=== PATIENT | female | born 1995 | race Hispanic/Latino ===

== ENCOUNTER 2020-08-07 03:35 | Emergency (ER) | payer OTHER ==
[2020-08-07 03:47] LABS: BASOPHILS % (AUTO) 0.2 % (0.0-5.0); EOSINOPHILS % (AUTO) 2.2 % (0.0-8.0); HEMATOCRIT 39.6 % (36-48); LYMPHOCYTES % (AUTO) 33.3 % (21.0-51.0); MEAN CORPUSCULAR HEMOGLOBIN 30.6 pg (27.0-33.0); MEAN CORPUSCULAR HGB CONC 34.3 g/dL (32.0-36.0); MONOCYTES % (AUTO) 5.4 % (3.0-13.0); NEUTROPHILS % (AUTO) 58.5 % (40.0-77.0); PLATELET COUNT (AUTO) 353 K/uL (130-400); RED BLOOD CELL COUNT(AUTO) 4.45 MIL/uL (4.00-5.50); RED CELL DISTRIBUTION WIDTH 11.9 % (11.0-15.5)
[2020-08-07 03:51] LABS: APPEARANCE,URINE Clear (CLEAR); BILIRUBIN,URINE Negative (NEGATIVE); COLOR,URINE Yellow (YELLOW); GLUCOSE, URINE (UA) Negative (NEGATIVE); KETONES,URINE Negative (NEGATIVE); LEUKOCYTE ESTERASE ,URINE Trace (NEGATIVE); NITRATE,URINE Negative (NEGATIVE); OCCULT BLOOD,URINE Negative (NEGATIVE); PH,URINE 5.5 (5.0-8.0); PROTEIN,URINE Negative (NEGATIVE); UROBILINOGEN,URINE 0.2 mg/dL (0.2-1.0)
[2020-08-07 03:52] LABS: HCG,QUAL RESULT NEGATIVE (NEGATIVE)
[2020-08-07 03:58] LABS: AMPHET/METH SCREEN,URINE NEGATIVE (NEGATIVE); BARBITURATE SCREEN, URINE NEGATIVE (NEGATIVE); BENZODIAZEPINES SCREEN,URINE NEGATIVE (NEGATIVE); CANNABINOID SCREEN,URINE NEGATIVE (NEGATIVE); COCAINE SCREEN,URINE NEGATIVE (NEGATIVE); OPIATE SCREEN,URINE NEGATIVE (NEGATIVE); PHENCYCLIDINE SCREEN,URINE NEGATIVE (NEGATIVE)
[2020-08-07 03:59] LABS: CARBON DIOXIDE 23 mmol/L (21-32); CHLORIDE 105 mmol/L (101-111); CREATININE 0.8 mg/dL (0.5-1.5); GLOMERULAR FILTR. RATE CALC 92 mL/min (>60); GLUCOSE,RANDOM 116 mg/dL (70-105); POTASSIUM 3.5 mmol/L (3.5-5.1); SODIUM SERUM 138 mmol/L (136-145); UREA NITROGEN, BLOOD 10 mg/dL (7-18)
[2020-08-07 04:02] LABS: BACTERIA,URINE None Seen /HPF (None Seen); RBC,URINE None Seen /HPF (0-1); SQUAMOUS EPITHELIAL CELL,UR Few /HPF (0-2); WBC,URINE None Seen /HPF (0-1)
[2020-08-07 04:03] LABS: ALANINE AMINOTRANSFERASE 39 U/L (12-78); ALCOHOL, BLOOD 108 mg/dL (0-10); ASPARTATE AMINOTRANSFERASE 29 U/L (10-37); BILIRUBIN,TOTAL 1.2 mg/dL (0.2-1.0); TOTAL PROTEIN, SERUM 8.6 g/dL (6.0-8.3)
[2020-08-07 04:09] LABS: ACETAMINOPHEN < 1 mcg/mL (10-30); SALICYLATE < 2.8 mg/dL (2.8-20.0)
== END 2020-08-07 04:25 | disposition home or self-care (01) ==
LOC: EDH 03:35
DX: F41.9 Anxiety disorder, unspecified (principal); F32.89 Other specified depressive episodes; Z88.8 Allergy status to other drugs, medicaments and biological substances
CPT/HCPCS: 36415; 80053; 80305; 81001; 81025; 82948; 85025; 99283; G0481

== ENCOUNTER 2024-06-18 17:21 | Emergency (ER) | payer MEDICAID ==
[~2024-06-18] VITALS: Ht 157.5 cm; Wt 79.4 kg
[2024-06-18] MEDS: 0.9%NACL 1000ML 1,000 ML IV ONE (18:15)
[2024-06-18] MEDS: DiphenhydrAMINE HCL 50 MG/ML VIAL IV ONE (18:15)
[2024-06-18] MEDS: FAMOTIDINE 20MG VIAL IV ONE (18:16)
[2024-06-18] MEDS: Solu-medROL 125MG VIAL IVP ONE (18:16)
[2024-06-18] MEDS ORDERED: METH4TAB3 PO (18:56)
[2024-06-18] MEDS ORDERED: DIPH50 PO (18:56)
[2024-06-18] MEDS ORDERED: FAMO-136 PO (18:56)
[2024-06-18 19:06] VITALS: BP 124/70; PULSE 100; RESP 18; TEMP 99; O2SAT 98
== END 2024-06-18 19:10 | disposition home or self-care (01) ==
LOC: EDH 17:21
DX: L50.0 Allergic urticaria (principal); T78.40XA Allergy, unspecified, initial encounter; F31.9 Bipolar disorder, unspecified; X58.XXXA Exposure to other specified factors, initial encounter
CPT/HCPCS: 99284; 96374; 96375; 96361; 81025; J1200; J7030; J2919; S0028; J3490